=== PATIENT | male | born 1960 | race Asian ===

== ENCOUNTER → 2017-06-06 | Outpatient (CLI) | payer BC ==
[~2017-06-06] MED LIST: NONE PER PT
== END ==
LOC: MERGE 13:47 → STAR 13:47
PROVIDERS: ATTEND Orthopaedic Surgery
DX: Z02.9 Encounter for administrative examinations, unspecified (principal)

== ENCOUNTER 2017-06-13 09:46 | Day surgery (SDC) | payer BC ==
[~2017-06-13] VITALS: Ht 177.8 cm; Wt 82.4 kg
[2017-06-13] MEDS ORDERED: LACTATED RINGERS 1,000 ML IV SCH (10:31)
[2017-06-13] MEDS ORDERED: LIDOCAINE/PF 1%, 30ML ONE (10:38)
[2017-06-13] MEDS ORDERED: BUPIVACAINE/PF 0.5% ONE (10:38)
[2017-06-13] MEDS ORDERED: EPINEPHRINE 1 MG/ML, 1ML ONE (10:39)
[2017-06-13 11:03] VITALS: BP 151/93
[2017-06-13] MEDS ORDERED: ROPIvacaine/PF 0.5%, 30 ML ONE (11:06)
[2017-06-13] MEDS ORDERED: FENTANYL PF 100 MCG/2ML ONE (11:54)
[2017-06-13] MEDS ORDERED: PROPOFOL 10 MG/ML, 20ML ONE ×2 (11:55)
[2017-06-13] MEDS ORDERED: MIDAZOLAM 1 MG/ML, 2ML ONE (11:55)
[2017-06-13] MEDS ORDERED: SUCCINYLCHOLINE 20 MG/ML, 10ML ONE (11:56)
[2017-06-13] MEDS ORDERED: LIDOCAINE GEL 2%, 5ML ONE (11:57)
[2017-06-13] MEDS ORDERED: ONDANSETRON 2MG/ML, 2ML ONE (12:13)
[2017-06-13] MEDS ORDERED: DEXAMETHASONE 4 MG/ML, 1ML ONE (12:13)
[2017-06-13] MEDS ORDERED: LIDOCAINE 1%-EPI 1:100K, 30ML INFIL ONE (12:21)
[2017-06-13] MEDS ORDERED: ROPIvacaine/PF 0.5%, 30 ML INFIL ONE (12:21)
[2017-06-13] MEDS ORDERED: PROMETHAZINE 25 MG/ML, 1ML IV PRN (12:30)
[2017-06-13] MEDS ORDERED: ACETAMINOPHEN 325 MG TABLET PO PRN (12:30)
[2017-06-13] MEDS ORDERED: ONDANSETRON 2MG/ML, 2ML IVPush PRN (12:30)
[2017-06-13] MEDS ORDERED: FENTANYL PF 100 MCG/2ML IV PRN (12:30)
[2017-06-13] MEDS ORDERED: MEPERIDINE/PF 25MG/0.5ML IVPush PRN (12:30)
[2017-06-13] MEDS ORDERED: MIDAZOLAM 1 MG/ML, 2ML IV PRN (12:30)
[2017-06-13] MEDS ORDERED: OXYcodone 5 MG/5 ML ORAL.SOL UDC PO PRN (12:30)
[2017-06-13] MEDS ORDERED: HYDROmorphone 1 MG/ML, 1ML IV PRN (12:30)
[2017-06-13] MEDS ORDERED: ACETAMINOPHEN 650 MG/20.3 ML UDC ONE (13:04)
[2017-06-13] MEDS ORDERED: OXYcodone 5 MG/5 ML ORAL.SOL UDC ONE (13:04)
== END 2017-06-13 18:00 ==
LOC: OUT 09:46
PROVIDERS: ATTEND Orthopaedic Surgery
DX: S83.232A Complex tear of medial meniscus, current injury, left knee, initial encounter (principal); M65.862 Other synovitis and tenosynovitis, left lower leg; M79.4 Hypertrophy of (infrapatellar) fat pad; X58.XXXA Exposure to other specified factors, initial encounter; Y93.89 Activity, other specified; Y92.89 Other specified places as the place of occurrence of the external cause; Y99.8 Other external cause status
CPT/HCPCS: 29881; J0171; J0330; J1100; J2250; J2405; J2704; J2795; J3010; J3490; J7120